=== PATIENT | male | born 1950 | race Caucasian/White ===

== ENCOUNTER 2017-02-07 18:28 | Emergency (ER) | payer MEDICARE ==
[~2017-02-07] VITALS: Ht 180.3 cm; Wt 79.5 kg
[~2017-02-07 18:28] MED LIST: ALBU8.5H2 IH; ASPI-973 PO; ATOR80TA PO; CALC600T12 PO; FURO-129 PO; GABA600T PO; MAGN500C4 PO; METO25TA99 PO; MS15TCR PO; MULT-1073 PO; OMEP20CA11 PO; OXYC1TAB91 PO; POLY17PO6 PO; PRD5T PO; PROC-4 PO; ROB500 PO; ROPI0.5T2 PO; SYMINH IH; TIOT18CA3 IH
[2017-02-07 18:44] VITALS: BP 140/81; PULSE 89; RESP 18; O2SAT 96
--- NOTE | 2017-02-07 19:27 | ED.REPORT ---
HPI-Rash / Abscess Date of Service February 07, 2017 ED Provider: Yvan Humphreys MD Patient is a 66 year old male with a history of lung cancer, hypertension and COPD who presents to the ED due to a laceration on his right wrist onset two days ago. Associated symptoms include swelling of his left index finger, clear drainage and inflammation. He reports that he was working outside when he cut his wrist. The patient currently receives chemotherapy. Nursing Notes Stated Complaint: RIGHT WRIST AND LEFT FINGER INFECTION Chief Complaint: Skin Rash/Abscess Nursing Notes Reviewed: Yes Allergies: Coded Allergies: Penicillins (Verified Allergy, Severe, CHILD, 02/07/17) baclofen (Verified Adverse Reaction, Intermediate, 02/07/17) Scheduled Aspirin (Aspirin) 81 Mg Tablet 81 MG PO DAILY Atorvastatin (Lipitor) 80 Mg Tablet 80 MG PO DAILY Budesonide/Formoterol 160-4.5 mcg Inh (Symbicort 160-4.5 mcg Inh) 1 Puff Inha 2 PUFF IH BID Calcium Carbonate (Calcium) 600 Mg Tablet 600 MG PO DAILY Furosemide (Lasix) 20 Mg Tablet 20 MG PO DAILY Gabapentin (Neurontin) 600 Mg Tablet 600 MG PO BID Magnesium Oxide (Magnesium) 500 Mg Capsule 500 MG PO DAILY Methocarbamol (Methocarbamol) 500 Mg Tablet 500 MG PO BID Metoprolol Succinate ER (Metoprolol Succinate ER) 25 Mg Tab.er.24h 25 MG PO DAILY Morphine Sulfate ER (MS Contin) 15 Mg Tablet.er 15 MG PO BID Multivits-Min/FA/Lycopene/Lut (Centrum Silver Tablet) 1 Each Tablet 1 EACH PO DAILY Omeprazole (Omeprazole) 20 Mg Capsule.dr 20 MG PO DAILY Oxycodone HCl/Acetaminophen (Endocet 10-325 mg Tablet) 1 Each Tablet 1-2 EACH PO TID Polyethylene Glycol 3350 (Miralax) 17 Gm Powd.pack 17 GM PO DAILY Prednisone (PredniSONE) 5 Mg Tab 5 MG PO DAILY Ropinirole (Ropinirole) 0.5 Mg Tablet 0.5 MG PO HS Tiotropium [place] (Spiriva) 18 Mcg Cap.w.dev 2 PUFFS IH HS Scheduled PRN Albuterol HFA (Proair HFA) 8.5 Gm Hfa.aer.ad 2 PUFFS IH Q4 PRN PRN For Shortness of Breath Prochlorperazine Maleate (Compazine) 10 Mg Tablet 10 MG PO QID PRN PRN For Nausea/Vomiting General Time Seen by MD: 19:27 Chief Complaint Other (laceration to right wrist) Hx Obtained From: Patient Arrived By: Walk-in Onset Occurred: 2 days ago Symptom Duration: Since onset Location: : Hand Similar Sx Previous: No Past Medical History Past Medical History 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 Sister with a history of breast cancer. Maternal grandmother with lung cancer. 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 Physical Exam Initial Vital Signs Vital Signs (First) Date Time Temp Pulse Resp B/P Pulse Ox O2 Delivery O2 Flow Rate FiO2 02/07/17 18:44 37.0 89 18 140/81 96 Room Air Initial VS: Reviewed General/Constitutional: Awake, Alert, No acute distress Skin: No rash, Warm, Dry abrasion to the right dorsal wrist, mild cellulitis no evidence of septic arthritis base of left index finger has soft tissue swelling, questionable abscess Head / Eyes: Atraumatic, Normocephalic, PERRL, EOMI Respiratory / Chest: Atraumatic, Breath sounds NL, Breath sounds = bilat, No respiratory distress Neurologic: Oriented X3, Speech NL, No motor deficits, No sensory deficits Neck: Atraumatic, Supple, Full range of motion Abdomen: Atraumatic, Soft, Non-tender Psychiatric: Affect NL, Mood NL Interpretation & Diagnostics Lab Results Interpretation Result Diagram: 02/07/17 2018 02/07/17 2018 Test 02/07/17 20:18 White Blood Count 8.4th/mm3 (3.8-10.1) Red Blood Count 3.81mil/mm3 (4.40-5.80) Hemoglobin 12.0g/dL (13.8-17.2) Hematocrit 37.7% (41.0-50.0) Mean Corpuscular Volume 99.0fL (81-100) Mean Corpuscular Hemoglobin 31.5pg (27.0-35.0) Mean Corpuscular Hemoglobin Concent 31.8% (32.0-37.0) Red Cell Distribution Width 14.6% (12.3-15.4) Platelet Count 176bil/L (150-400) Neutrophils (%) (Auto) 66.8% (40-74) Lymphocytes (%) (Auto) 20.3% (14-46) Monocytes (%) (Auto) 7.8% (4-12) Eosinophils (%) (Auto) 4.5% (0-5) Basophils (%) (Auto) 0.5% (0-3) Sodium Level 137mEq/L (134-144) Potassium Level 4.1mEq/L (3.5-5.2) Chloride Level 101mEq/L (97-108) Carbon Dioxide Level 21mmol/L (18-29) Blood Urea Nitrogen 34mg/dL (8-27) Creatinine 1.54mg/dL (0.76-1.27) Estimat Glomerular Filtration Rate 49mL/min (>59) Glucose Level 159mg/dL (60-99) Calcium Level 9.2mg/dL (8.5-10.1) Total Bilirubin 0.3mg/dL (0.0-1.2) Aspartate Amino Transf (AST/SGOT) 27U/L (0-50) Alanine Aminotransferase (ALT/SGPT) 19U/L (0-44) Alkaline Phosphatase 113U/L (25-160) Total Protein 7.0g/dL (6.4-8.4) Albumin 4.0g/dL (3.4-5.0) Hold Red Top Tube Received (Received) Hold Rubin Top Tube Received (Received) Procedures Incision & Drainage Abscess Time: 20:20 Procedure Performed by: ED physician Consent / Setup / Site Prep: Consent from patient, Time-out performed, Hand hygiene observed Location of Abscess: left index finger Skin Preparation Agent: Betadine Local Anesthesia: Lidocaine 1% Pus Drained: Small Post-Procedure / Complications: No complications, Condition improved, Tolerated procedure well, Patient stable Re-Eval/Medical Decision Re-Evaluation/Progress : Time of Eval: 20:18 Re-Evaluation/Progress Note: Discussed plan for procedure and discharge. The patient understands and agrees to the procedure and discharge. All questions were addressed. Counseled Regarding: Diagnosis, Lab results, Need for follow-up, When/why to return to ED Discharge & Departure Impression: Primary Impression: Cellulitis Site of cellulitis: extremity Site of cellulitis of extremity: upper extremity Laterality: right Qualified Code: L03.113 - Cellulitis of right upper limb Additional Impression: Abscess Disposition: Home Discharge Condition All VS Reviewed: Yes Condition: Stable Patient Instructions: Cellulitis (GEN) Additional Instructions: Keep the wounds covered with an antibacterial ointment and a bandage. Take Keflex 4 times daily for 5 days. Take Bactrim twice daily for 5 days. Have a wound check next week. If symptoms persist you may need of a longer course of antibiotics. If he develops a fever come right back to the emergency department. Return if any problems or any worsening symptoms. Call your doctor on Thursday set up a follow-up. Referrals: Katelin Quezada MD (PCP) Reynaldo Attestation Portions of this note were transcribed by Elizabeth Bangura. I, Dr. Humphreys personally performed the history, physical exam and medical decision-making; I reviewed and confirmed the accuracy of the information in the transcribed note. Signed by:Reynaldo Kapoor, 02/07/17 and 2034 copies to: Katelin Quezada MD, Todd P DO February 07, 2017 19:27 Meena Bangura February 07, 2017 19:52
[2017-02-07] MEDS ORDERED: Lidocaine 2% 50 mL Inj NERVEBLOCK ONE (19:35)
[2017-02-07 20:22] LABS: BASOPHILS % (AUTO) 0.5 % (0-3); EOSINOPHILS % (AUTO) 4.5 % (0-5); MONOCYTES % (AUTO) 7.8 % (4-12); Mean Corpuscular Hemoglobin 31.5 pg (27.0-35.0); NEUTROPHILS % (AUTO) 66.8 % (40-74); Platelet Count 176 bil/L (150-400)
[2017-02-07] MEDS ORDERED: Trimethoprim-Sulfa 160 mg-800 mg Tablet PO ONE (20:30)
[2017-02-07 20:49] VITALS: BP 158/75; PULSE 74; RESP 16; O2SAT 96
== END 2017-02-07 20:50 | disposition home or self-care (01) ==
LOC: SED 18:28
DX: L03.113 Cellulitis of right upper limb (principal); L02.512 Cutaneous abscess of left hand; S61.511A Laceration without foreign body of right wrist, initial encounter; W26.9XXA Contact with unspecified sharp object(s), initial encounter; Y92.89 Other specified places as the place of occurrence of the external cause; Y93.89 Activity, other specified; Y99.8 Other external cause status; I12.9 Hypertensive chronic kidney disease with stage 1 through stage 4 chronic kidney disease, or unspecified chronic kidney disease; J44.9 Chronic obstructive pulmonary disease, unspecified; N18.3 Chronic kidney disease, stage 3 (moderate); I25.10 Atherosclerotic heart disease of native coronary artery without angina pectoris; K21.9 Gastro-esophageal reflux disease without esophagitis; G89.29 Other chronic pain; F17.200 Nicotine dependence, unspecified, uncomplicated; Z92.21 Personal history of antineoplastic chemotherapy; Z79.82 Long term (current) use of aspirin; Z88.0 Allergy status to penicillin; Z88.8 Allergy status to other drugs, medicaments and biological substances